=== PATIENT | male | born 1960 | race Caucasian/White ===

== ENCOUNTER 2023-12-17 13:59 | Emergency (ER) | payer OTHER, BC ==
[~2023-12-17] VITALS: Ht 175.3 cm; Wt 72.6 kg
[2023-12-17 14:54] VITALS: BP_SYST 158; PULSE 74; RESP 18; TEMP 97.9; O2SAT 99
[2023-12-17] MEDS: KETOROLAC TROMETHAMINE 60 MG/2 ML VIAL IM ONE (16:15)
[2023-12-17] MEDS ORDERED: NAPR-688 PO (16:56)
[2023-12-17] MEDS ORDERED: SOM350 PO (16:56)
[2023-12-17] MEDS ORDERED: PRED50TA PO (16:56)
[2023-12-17 17:00] VITALS: PULSE 74; RESP 18; TEMP 97.9; O2SAT 99
== END 2023-12-17 17:39 | disposition home or self-care (01) ==
LOC: EDSEX 13:59 → SED 13:59
DX: M54.16 Radiculopathy, lumbar region (principal); Z79.899 Other long term (current) drug therapy; Z79.2 Long term (current) use of antibiotics
CPT/HCPCS: 99283; 72100; 96372; J1885